=== PATIENT | female | born 1970 | race Caucasian/White ===

== ENCOUNTER → 2019-03-11 10:44 | Outpatient (CLI) | payer BC, SELFPAY ==
--- NOTE | 2019-03-11 11:29 | CT_ITS ---
PROCEDURE: CT HEART W CALCIUM SCORE CLINICAL HISTORY: FAMILY H/O OF CARDIOMYOPATHY COMPARISON: [facility] DIG MAMM-SCREEN [facility] from 12/03/2012 TECHNIQUE: Axial images obtained with sagittal and coronal reformats. All CT scans at the facility use one or more dose reduction, viz: automated exposure control, ma/kV adjustment per patient size (including targeted exams where dose is matched to indication, i.e. head), or iterative reconstruction technique. FINDINGS: Coronary artery calcium score is 25 indicating mild plaque burden and moderate cardiovascular disease risk. Incidental note made of mild prominence of the ascending aorta at 3.9 cm. There is mild thickening of the distal esophagus which could be due to nondistention or mild esophagitis. Minimal atelectatic or fibrotic changes are present in the left lung base. There is an 8 mm well-circumscribed nodular density in the lateral aspect of the left breast possibly due to a lymph node. Consider mammography for further evaluation. IMPRESSION: 1. Mild plaque burden with moderate cardiovascular disease risk. 2. Mild prominence of the ascending aorta at 3.9 cm. 3. 8 mm nodular opacity lateral aspect of left breast. Consider mammogram and possibly ultrasound for further evaluation Dictated by: Aureliano Fortune MD 03/17/2019 06:43 Electronically signed by Aureliano Fortune MD in [place] 03/17/2019 06:43
== END ==
PROVIDERS: PCP Family Medicine; Visit Provider Family Medicine
DX: Z13.6 Encounter for screening for cardiovascular disorders (principal); Z82.49 Family history of ischemic heart disease and other diseases of the circulatory system
CPT/HCPCS: 75571; 93306

== ENCOUNTER → 2021-01-25 18:28 | Outpatient (CLI) | payer OTHER, SELFPAY ==
[2021-01-25 18:59] LABS: Influenza A, PCR Not Detected (NotDetected); Influenza B, PCR Not Detected (NotDetected)
[2021-01-25 22:16] LABS: Coronavirus 19, PCR Detected (NotDetected)
== END ==
PROVIDERS: PCP Family Medicine; Visit Provider Family Medicine
DX: Z20.822 Contact with and (suspected) exposure to COVID-19 (principal); U07.1 COVID-19
CPT/HCPCS: C9803; U0003; U0005

== ENCOUNTER 2021-01-26 09:38 | Outpatient (CLI) | payer OTHER, SELFPAY ==
[2021-01-26] VITALS (7 sets, daily range): BP systolic 135–152; BP diastolic 76–83; PULSE 69–80; RESP 16; TEMP 36.9; O2SAT 95–100
== END 2021-01-26 14:02 | disposition home or self-care (01) ==
LOC: COVID.OUT 09:40
PROVIDERS: PCP Family Medicine; Visit Provider Family Medicine
DX: U07.1 COVID-19 (principal); Z23 Encounter for immunization
CPT/HCPCS: 96365

== ENCOUNTER → 2021-10-19 15:10 | Outpatient (CLI) | payer OTHER, SELFPAY | PROVIDERS: PCP Family Medicine; Visit Provider Family Medicine | DX: G47.33 Obstructive sleep apnea (adult) (pediatric) (principal); G47.10 Hypersomnia, unspecified; R06.83 Snoring; I10 Essential (primary) hypertension | CPT/HCPCS: 95806 ==